=== PATIENT | female | born 1960 | race Caucasian/White ===

== ENCOUNTER 2023-12-13 16:39 | Outpatient (REF) | payer MEDICAID, SELFPAY ==
--- NOTE | 2023-12-13 11:50 | NASALBX_PTH ---
PATIENT: Enedelia Adam LOC: [facility] U#:[id number] AGE/SX: 63/F ROOM: RE12/13/[address]: Estrada Morataya MD : 1960 BED: DIS: 12/13/2023 SPEC #: [id number] RECD: 12/13/23 18:04 STATUS: ALEXEI REJocelin #: [id number] VILMA: 12/13/23 11:[address]: Estrada Morataya DEPT: Surgical Specimen RECD BY: Ashley Gavin ENTERED: 12/13/23 18:06 SP TYPE: NASALBX OTHR DR: Julia Beauchamp Tissues: 1 - MUCOSA, NOS Procedures: GROSS AND MICRO LEVEL 4 SPECIAL STAIN 1 Comments: [id number]
== END 2023-12-13 16:40 | disposition home or self-care (01) ==
LOC: LBN 16:39
PROVIDERS: PCP Physician Assistant Medical; Visit Provider Otolaryngology
DX: J34.81 Nasal mucositis (ulcerative) (principal)
CPT/HCPCS: 88305; 88312